=== PATIENT | female | born 1950 | race Caucasian/White ===

== ENCOUNTER 2018-01-14 07:23 | Emergency (ER) | payer SELFPAY ==
[~2018-01-14] VITALS: Ht 152.4 cm; Wt 63.5 kg
[2018-01-14 07:37] VITALS: BP 123/76
[2018-01-14] MEDS ORDERED: CEPHALEXIN500 MG ORAL (07:44)
[2018-01-14] MEDS ORDERED: CLARITIN10 M2 ORAL (07:44)
--- NOTE | 2018-01-14 07:48 | Emergency Room Report ---
History of Present Illness General Chief Complaint: Eye Problems Source: Patient Present Illness HPI Patient is a 67-year-old female who presented after increased left eye swelling. Patient had recent microblading procedure and noted to have continued edema. Patient denies any injections being performed. The patient denies any severe pain. She reports having increased swelling to the left eye however both eyes had procedure performed. The patient denied any changes. She denies any severe headache. Allergies: Coded Allergies: No Known Allergies (Unverified , 01/14/18) Patient History Past Medical History: see triage record Last Menstrual Period: 2009 Reviewed Nursing Documentation: PMH: Agreed; PSxH: Agreed Nursing Documentation-PMH Past Medical History: No Stated History Review of Systems All Other Systems: negative except mentioned in HPI Physical Exam Vital Signs Date Time Temp Pulse Resp B/P (MAP) Pulse Ox O2 Delivery O2 Flow Rate FiO2 01/14/18 07:27 97.8 67 19 123/76 95 Room Air 97.9 General Appearance: well appearing, no apparent distress, alert, GCS 15 Head: normocephalic, atraumatic Eyes: bilateral eye other - swelling to left eyelid, minimal erythema ENT: hearing grossly normal, normal voice Neck: full range of motion, supple Respiratory: no respiratory distress, speaking full sentences Musculoskeletal: no calf tenderness Neurologic: normal gait Psychiatric: mood/affect normal Skin: no rash Medical Decision Making Diagnostic Impression: Primary Impression: Periorbital edema of left eye ER Course Patient presented for left eye swelling. Differential diagnosis included was not limited to cellulitis, allergic reaction, contact dermatitis, foreign body among others. Patient has a benign exam and does not appear to require any further imaging or laboratory testing at this time. Patient was given prescription for Keflex as there may be some minimal infection. The patient is advised to use cool compresses and to follow-up with ophthalmology for reexamination in 1-2 days. Patient is advised to return if any worsening condition or if any changes in status that are concerning. This report is dictated with [employer] surgery manager software which may occasionally lead to discrepancies related to use of this software. Last Vital Signs Date Time Temp Pulse Resp B/P (MAP) Pulse Ox O2 Delivery O2 Flow Rate FiO2 01/14/18 07:37 97.9 19 123/76 95 Room Air 97.9 01/14/18 07:27 67 Status: improved Disposition: HOME, SELF-CARE Condition: Stable Scripts Cephalexin* (KEFLEX*) 500 Mg Capsule 500 MG ORAL EVERY 6 HOURS, #28 CAP Prov: Kt Jane MD 01/14/18 Loratadine (CLARITIN) 10 Mg Capsule 10 MG ORAL DAILY, #30 CAP Prov: Kt Jane MD 01/14/18 Referrals: MICA VAZQUEZ Patient Instructions: Preseptal Cellulitis, Adult Additional Instructions: Avoid using eye makeup. Follow up with opthalmology Kt Jane MD January 14, 2018 07:48
== END 2018-01-14 07:52 | disposition home or self-care (01) ==
LOC: EMR 07:50
DX: H05.222 Edema of left orbit (principal)
CPT/HCPCS: 99284